=== PATIENT | male | born 1950 | race African-American/Black ===

== ENCOUNTER → 2018-08-29 | Day surgery (SDC) | payer MEDICARE, BC ==
[~2018-08-29] MED LIST: AMLO5TAB10 PO; ATOR20TA58 PO; BALS750C PO; IV NORMAL SALINE 1000ML BAG 1,000 ML IV SCH; LIDOCAINE 1% PF 2 ML VIAL. ONE; OMEP20TA8 PO; PROPOFOL 40 ML IV ONE
[2018-08-29 08:20] VITALS: BP 137/73
--- NOTE | 2018-09-01 17:08 | PATHOLOGY ---
[facility] Accession Number: [id number] . 01 Material submitted: . PART A: DISTAL ESOPHAGUS BIOPSY PART B: DESCENDING COLON POLYP PART C: RIGHT COLON BIOPSY PART D: TRANSVERSE COLON BIOPSY PART E: LEFT COLON BIOPSY . 01 Clinical history: . Colitis . 02 Diagnosis: A. Esophageal biopsies, distal esophagus: - Segments of hyperplastic squamous esophageal mucosa and segment of gastric mucosa showing mild chronic inflammation, consistent with reflux esophagitis. . B. Colon biopsy, descending colon polyp: - Inflammatory polyp. . C. Colon biopsies, right colon: - Active chronic colitis, moderate. . D. Colon biopsies, transverse colon: - Patchy active chronic colitis, mild. . E. Colon biopsies, left colon: - Focal mild active colitis. (JPM:everett; 09/01/2018) QMS/09/01/2018 . 02 Comment: Sections of the distal esophageal biopsy reveal multiple segments of tangentially oriented hyperplastic squamous esophageal mucosa, and a segment of gastric mucosa showing mild chronic inflammation. The findings are consistent with reflux esophagitis. There is no evidence of Mora change, dysplasia, or malignancy. . Sections of the descending colon polyp reveal a polypoid segment of colonic mucosa showing mucosal inflammation with focal acute cryptitis, regeneration, and repair consistent with inflammatory polyp. There is no dysplasia or evidence of malignancy. . Sections of the right colon biopsies reveal segments of colonic mucosa showing a mild to moderate active chronic colitis with crypt abscesses, crypt architectural distortion, and focal lymphoid hyperplasia. The findings are consistent with active chronic ulcerative colitis. There is no evidence of dysplasia or malignancy. . Sections of the transverse colon biopsy reveal multiple segments of colonic mucosa showing patchy foci of mild active colitis with acute cryptitis. There is no evidence of dysplasia or malignancy. . Sections of the left colon biopsy reveal multiple segments of colonic mucosa which largely appear quiescent but do show a couple of foci of acute cryptitis. There is no evidence of dysplasia or malignancy. (JPM:everett; 09/01/2018) . 02 Electronically signed: . Zak Messer MD, Pathologist NPI- [id number] . 01 Gross description: . A. Received in formalin labeled "Anupam Newton, distal esophagus BX," are 3 segments of ridley soft tissue measuring 1.5 x 0.7 x 0.2 cm in aggregate dimensions and ranging from 0.3 to 0.9 cm in maximum dimension. The specimen is submitted entirely in cassette A1. . B. Received in formalin labeled "Anupam Newton, descending colon polyp," is a 0.8 x 0.4 x 0.4 cm polypoid piece of ridley soft tissue. The margin is inked and the specimen is sectioned perpendicular to the margin and entirely submitted in cassette B1. . C. Received in formalin labeled "Anupam Newton, right colon BX-colitis," are multiple segments of ridley soft tissue measuring 1.5 x 0.6 x 0.1 cm in aggregate dimensions. The specimen is filtered and entirely submitted in cassette C1. . D. Received in formalin labeled "Anupam Newton, transverse colon BX-colitis," are multiple segments of ridley soft tissue measuring 1.7 x 0.6 x 0.2 cm in aggregate dimensions. The specimen is filtered and entirely submitted in cassette D1. . E. Received in formalin labeled "Anupam Newton, left colon BX-colitis," are multiple segments of ridley soft tissue measuring 1.5 x 0.7 x 0.1 cm in aggregate dimensions. The specimen is filtered and entirely submitted in cassette E1. (TSD; 08/29/2018) TOB/TOB . 02 Pathologist provided ICD-10: K21.0, K20.9, K63.5, K52.9 . 02 CPT . 187810, 549132, 165817, 140010, 960719 Specimen Comment: A courtesy copy of this report has been sent to Specimen Comment: [phone], , . Specimen Comment: Report sent to ,DR BOLANOS / DR SMITH Performed at: [address] [place] [address] [address], [place], [place] [id number] MD Simon Soler MD Phone: [phone] Performed at: [address] [id number] MD Zak Messre MD Phone: [phone]
== END | disposition home or self-care (01) ==
LOC: SURG 06:36
PROVIDERS: ATTEND Internal Medicine Gastroenterology
DX: K21.0 Gastro-esophageal reflux disease with esophagitis (principal); K57.30 Diverticulosis of large intestine without perforation or abscess without bleeding; K64.0 First degree hemorrhoids; K51.40 Inflammatory polyps of colon without complications; K52.89 Other specified noninfective gastroenteritis and colitis; D50.9 Iron deficiency anemia, unspecified; Z86.711 Personal history of pulmonary embolism; J45.909 Unspecified asthma, uncomplicated; G47.30 Sleep apnea, unspecified; I12.9 Hypertensive chronic kidney disease with stage 1 through stage 4 chronic kidney disease, or unspecified chronic kidney disease; E11.22 Type 2 diabetes mellitus with diabetic chronic kidney disease; N18.9 Chronic kidney disease, unspecified; Z82.49 Family history of ischemic heart disease and other diseases of the circulatory system; Z83.3 Family history of diabetes mellitus; F17.210 Nicotine dependence, cigarettes, uncomplicated; Z72.89 Other problems related to lifestyle; Z79.899 Other long term (current) drug therapy; Z98.890 Other specified postprocedural states; Z79.84 Long term (current) use of oral hypoglycemic drugs; Z99.2 Dependence on renal dialysis
CPT/HCPCS: 43239; 45380; 45385; 82962; J2704; 88305

== ENCOUNTER 2021-09-29 16:51 | Emergency (ER) | payer OTHER, MEDICAID ==
[~2021-09-29] VITALS: Ht 177.8 cm; Wt 87.0 kg
[~2021-09-29 16:51] MED LIST changes: +AMLO-186 PO; -AMLO5TAB10 PO; -IV NORMAL SALINE 1000ML BAG 1,000 ML IV SCH; -LIDOCAINE 1% PF 2 ML VIAL. ONE; -OMEP20TA8 PO; +OMEP20TA91 PO; -PROPOFOL 40 ML IV ONE
[2021-09-29 18:40] VITALS: BP 92/54
--- NOTE | 2021-09-29 19:03 | PHYS DOC ---
Past Medical History Past Medical History: Renal Failure Past Surgical History: Coronary Bypass Surgery Additional Past Surgical Histo: DIALYSIS FISTULA LEFT ARM. General Adult EDM: Chief Complaint: DIZZY/LIGHT HEADED HPI: HPI: Patient is a 71 year old MALE who was brought here by his for evaluation confused and slow to respond while he was in the car with her. Patient has history of end-stage renal failure, he had hemodialysis every Saturday and Saturday. Patient actually had hemodialysis yesterday, and then again today. Patient finished dialysis at around 1 PM today. His then took him a local fast food restaurant to eat then she took him to the [employer]. Patient did not want to go into the casino so his left him in the car, and she went into the casino. Patient was in the car for several hours, his then took him to another casino where he again stayed in the car while she went to the casino. Then about 4:30 PM she was driving him home, when he was sleeping in the car, drooling at his mouth. She tried to get his attention but he was slow to respond so he worried that something might be wrong with him so he brought him here for evaluation. Patient said he is not sure why she brought him here, zahira santos said he was just sleeping in the car. Patient denies any headache, no chest pain, no abdominal pain, no nausea vomiting. Review of Systems: Review of Systems: Constitutional: Denies fever or chills. [] Eyes: Denies change in visual acuity. [] HENT: Denies nasal congestion or sore throat. [] Respiratory: Denies cough or shortness of breath. [] Cardiovascular: Denies chest pain or edema. [] GI: Denies abdominal pain, nausea, vomiting, bloody stools or diarrhea. [] : Denies dysuria. [] Musculoskeletal: Denies back pain or joint pain. [] Integument: Denies rash. [] Neurologic: Denies headache, focal weakness or sensory changes. [] Endocrine: Denies polyuria or polydipsia. [] Lymphatic: Denies swollen glands. [] Psychiatric: Denies depression or anxiety. [] Heart Score: C/O Chest Pain: N/A Risk Factors: Risk Factors: DM, Current or recent (<one month) smoker, HTN, HLP, family h istory of CAD, obesity. Risk Scores: Score 0 - 3: 2.5% MACE over next 6 weeks - Discharge Home Score 4 - 6: 20.3% MACE over next 6 weeks - Admit for Clinical Observation Score 7 - 10: 72.7% MACE over next 6 weeks - Early Invasive Strategies Allergies: Allergies: Allergies Coded Allergies Type Severity Reaction Last Updated Verified No Known Drug Allergies 08/29/18 No Physical Exam: PE: Constitutional: Well developed, well nourished, no acute distress, non-toxic appearance. [] HENT: Normocephalic, atraumatic, bilateral external ears normal, oropharynx moist, no oral exudates, nose normal. [] Eyes: PERRLA, EOMI, conjunctiva normal, no discharge. [] Neck: Normal range of motion, no tenderness, supple, no stridor. [] Cardiovascular:Heart rate regular rhythm, no murmur [] Lungs & Thorax: Bilateral breath sounds clear to auscultation [] Abdomen: Bowel sounds normal, soft, no tenderness, no masses, no pulsatile masses. [] Skin: Warm, dry, no erythema, no rash. [] Back: No tenderness, no CVA tenderness. [] Extremities: No tenderness, no cyanosis, no clubbing, ROM intact, no edema. [] Neurologic: Alert and oriented X 3, normal motor function, normal sensory func tion, no focal deficits noted. Patient can move all extremities without any problem, his speech was clear, he had no focal neurological deficits. Psychologic: Affect normal, judgement normal, mood normal. [] Current Patient Data: Labs: Laboratory Tests Test 09/29/21 19:21 Glucose (Fingerstick) 183 mg/dL Vital Signs: Vital Signs Date Time Temp Pulse Resp B/P (MAP) Pulse Ox O2 Delivery O2 Flow Rate FiO2 09/29/21 18:40 97.7 69 14 92/54 (67) 96 Room Air 97.7 EKG: EKG: [] Radiology/Procedures: Radiology/Procedures: [][facility] [address] [place], [place] [id number] IMAGING REPORT Signed PATIENT: MARICRUZ ORTIZ ACCOUNT: [id number] : 1950 LOCATION: ER AGE: 71 SEX: M EXAM STATUS: REG ER ORD. PHYSICIAN: LAZARO BEASLEY DO REASON: ALTERED MENTAL STATUS PROCEDURE: CT HEAD WO CONTRAST CT brain without contrast. HISTORY: Altered mental status CT scan of the brain was done without contrast. Sinuses are clear. A skull fracture is not identified. There is no intracranial hemorrhage or subdural hematoma. There is mild atrophy. There is mild decreased density in the white matter from chronic microvascular changes. There is no mass effect or shift of the midline. An acute CVA is not identified. Ventricles are normal in size. IMPRESSION: 1. Atrophy. 2. No intracranial hemorrhage or acute finding noted. RS Compliance Statement: One or more of the following individualized dose reduction techniques were utilized for this examination: 1. Automated exposure control 2. Adjustment of the mA and/or kV according to patient size 3. Use of iterative reconstruction technique Electronically signed by: Bernard Dudley MD (09/29/2021 7:29 PM) [facility] DICTATED and SIGNED BY: BERNARD DUDLEY MD DATE: 09/29/211920 Course & Med Decision Making: Course & Med Decision Making Pertinent Labs and Imaging studies reviewed. (See chart for details) Patient is a 71-year-old male who was brought here by his for evaluation of confusion, patient was actually not confusion, CT scan head normal, his blood s ugar was okay, patient was sleeping in the car why she was driving around to different casino. Patient did have hemodialysis today. Patient is awake alert oriented to time place and person at this time, he denies any headache, no chest pain, no abdominal pain, no nausea vomiting. Patient said he feels totally normal himself. There is no further work-up needed at this time. Patient will be discharged home. Dragon Disclaimer: [employer] Disclaimer: This electronic medical record was generated, in whole or in part, using a voice recognition dictation system. Departure Departure Impression: Primary Impression: Altered mental status Disposition: HOME / SELF CARE / HOMELESS Condition: STABLE Referrals: LEV BOLANOS MD (PCP) Follow up with your doctor on Saturday. Patient Instructions: Altered Mental Status Additional Instructions: Thank you for visiting our Emergency Department. We appreciate you trusting us with your care. If any additional problems come up don't hesitate to return to visit us. Please follow up with your primary care provider so they can plan additional care if needed and know about the problem that you had. If symptoms worsen come back to the Emergency Department. Any concerning symptoms that start such as chest pain, shortness of air, weakness or numbness on one side of the body, running high fevers or any other concerning symptoms return to the ER. LAZARO BEASLEY DO Sep 29, 2021 19:03
--- NOTE | 2021-09-29 19:31 | RAD ---
CT brain without contrast. HISTORY: Altered mental status CT scan of the brain was done without contrast. Sinuses are clear. A skull fracture is not identified . There is no intracranial hemorrhage or subdural hematoma. There is mild atrophy. There is mild decr eased density in the white matter from chronic microvascular changes. There is no mass effect or shif t of the midline. An acute CVA is not identified. Ventricles are normal in size. IMPRESSION: 1. Atrophy. 2. No intracranial hemorrhage or acute finding noted. PQRS Compliance Statement: One or more of the following individualized dose reduction techniques were utilized for this examinat ion: 1. Automated exposure control 2. Adjustment of the mA and/or kV according to patient size 3. Use of iterative reconstruction technique Electronically signed by: Bernard Dudley MD (09/29/2021 7:29 PM) [facility]
== END 2021-09-29 20:06 | disposition home or self-care (01) ==
LOC: ER 16:51
DX: R41.82 Altered mental status, unspecified (principal); N18.6 End stage renal disease; Z99.2 Dependence on renal dialysis; Z95.1 Presence of aortocoronary bypass graft
CPT/HCPCS: 70450; 82962; 99284